=== PATIENT | male | born 1990 | race Caucasian/White ===

== ENCOUNTER 2019-05-28 17:59 | Inpatient (IN) | payer MEDICAID, OTHER ==
[~2019-05-28] VITALS: Ht 185.4 cm; Wt 94.4 kg
[2019-05-28] MEDS ORDERED: HYD25 PO (19:34)
[2019-05-28] MEDS ORDERED: ESCI20TA PO (19:34)
[2019-05-28] MEDS ORDERED: TRAZ-257 PO (19:34)
[2019-05-28 20:01] LABS: BASOPHILS % (AUTO) 0.4 % (0.0-2.0); EOSINOPHILS % (AUTO) 0 % (1.0-6.0); HEMATOCRIT 52.4 % (41-53); HEMOGLOBIN 17.6 g/dL (13.5-17.5); LYMPHOCYTES # (AUTO) 2.1 K/uL (1.0-4.8); LYMPHOCYTES % (AUTO) 14.6 % (22.0-44.0); MEAN CORPUSCULAR HEMOGLOBIN 31.2 pg (26.0-34.0); MEAN CORPUSCULAR HGB CONC 33.5 G/dL (31.0-37.0); MEAN CORPUSCULAR VOLUME 93 fL (80-100); MONOCYTES # (AUTO) 0.5 K/uL (0.1-1.0); MONOCYTES % (AUTO) 3.3 % (2.0-9.0); NEUTROPHILS # (AUTO) 11.9 K/uL (1.8-7.7); NEUTROPHILS % (AUTO) 81.7 % (40.0-70.0); PLATELET COUNT (AUTO) 293 K/uL (150-450); RED BLOOD CELL COUNT(AUTO) 5.63 MIL/uL (4.50-5.90); RED CELL DISTRIBUTION WIDTH 14.2 % (11.5-14.5)
[2019-05-28 20:18] LABS: ANION GAP 27 mmol/L (8-16); CALCIUM, TOTAL 9.2 mg/dL (8.8-10.5); CARBON DIOXIDE 16 mmol/L (22-29); CHLORIDE 102 mmol/L (98-107); CREATININE 1.26 mg/dL (0.60-1.30); GLOMERULAR FILTR. RATE CALC > 60 mL/min (>60); GLUCOSE,RANDOM 98 mg/dL (70-110); POTASSIUM 4.1 mmol/L (3.5-5.1); SODIUM SERUM 145 mmol/L (136-145); UREA NITROGEN, BLOOD 19 mg/dL (7-18)
[2019-05-28 20:24] LABS: ALANINE AMINOTRANSFERASE 34 U/L (12-78); ALBUMIN 4.6 g/dL (3.4-5.0); ALKALINE PHOSPHATASE 98 U/L (46-116); ASPARTATE AMINOTRANSFERASE 31 U/L (15-37); BILIRUBIN,TOTAL 0.4 mg/dL (0.1-1.0); TOTAL PROTEIN, SERUM 7.8 g/dL (6.4-8.2)
[2019-05-28] MEDS ORDERED: ChlordiazePOXIDE HCL 25 MG CAPSULE PO ONE (20:30)
[2019-05-28] MEDS ORDERED: ChlordiazePOXIDE HCL 25 MG CAPSULE PO PRN (20:45)
[2019-05-28] MEDS ORDERED: HALOPERIDOL 5 MG TABLET PO PRN (20:45)
[2019-05-28 22:16] VITALS: BP 121/89
[2019-05-28] MEDS: TraZODone HCL 50 MG TABLET PO SCH (22:29)
[2019-05-28] MEDS ORDERED: INFLUENZA VIRUS VACCINE QVS 2019-20 (3YR+)/PF 60 MCG/0.5 ML SYRINGE IM ONE (23:00)
[2019-05-28 23:16] VITALS: BP 125/75
[2019-05-29] VITALS (10 sets, daily range): BP systolic 124–159; BP diastolic 68–98
[2019-05-29 00:19] LABS: APPEARANCE,URINE CLEAR (CLEAR); BILIRUBIN,URINE NEGATIVE (NEGATIVE); GLUCOSE, URINE (UA) NEGATIVE (NEGATIVE); KETONES,URINE 15 mg/dL (NEGATIVE); LEUKOCYTE ESTERASE ,URINE NEGATIVE (NEGATIVE); NITRATE,URINE NEGATIVE (NEGATIVE); OCCULT BLOOD,URINE NEGATIVE (NEGATIVE); PROTEIN,URINE POS 1+ (NEGATIVE); UROBILINOGEN,URINE 0.2 mg/dL (<=1.0)
[2019-05-29 00:20] LABS: AMPHET/METH SCREEN,URINE NEGATIVE (NEGATIVE); BARBITURATE SCREEN, URINE NEGATIVE (NEGATIVE); BENZODIAZEPINES SCREEN,URINE NEGATIVE (NEGATIVE); CANNABINOID SCREEN,URINE POSITIVE (NEGATIVE); COCAINE SCREEN,URINE NEGATIVE (NEGATIVE); METHADONE SCREEN, URINE NEGATIVE (NEGATIVE); OPIATE SCREEN,URINE NEGATIVE (NEGATIVE)
[2019-05-29 00:22] LABS: PHENCYCLIDINE SCREEN,URINE NEGATIVE (NEGATIVE)
[2019-05-29] MEDS ORDERED: ChlordiazePOXIDE HCL 25 MG CAPSULE PO PRN (07:00)
[2019-05-29 07:21] LABS: CHOL/HDL RATIO 2.6 (4.2-7.3)
[2019-05-29] MEDS: ChlordiazePOXIDE HCL 25 MG CAPSULE PO SCH ×4 (08:46→20:31)
[2019-05-29] MEDS ORDERED: MAG HYDROX/AL HYDROX/SIMETH ES 30 ML SUSPENSION UDCUP PO PRN (09:30)
[2019-05-29] MEDS ORDERED: NICOTINE 14 MG/24 HOUR PATCH TD PRN (09:30)
[2019-05-29] MEDS ORDERED: ALBUTEROL SULFATE HFA 90 MCG/PUFF 8 GM INHALER IH PRN (09:30)
[2019-05-29] MEDS ORDERED: CloNIDine HCL 0.1 MG TABLET PO PRN (09:30)
[2019-05-29] MEDS ORDERED: ONDANSETRON HCL 4 MG TABLET PO PRN (09:30)
[2019-05-29] MEDS ORDERED: ACETAMINOPHEN 325 MG TABLET PO PRN (09:30)
[2019-05-29] MEDS ORDERED: MAGNESIUM HYDROXIDE SUSPENSION 30 ML UDCUP PO PRN (09:30)
[2019-05-29] MEDS ORDERED: GuaiFENesin/D-METHORPHAN [SUGAR-FREE] 200-20MG/10 ML SYRUP UDCUP PO PRN (09:30)
[2019-05-29] MEDS ORDERED: IBUPROFEN 400 MG TABLET PO PRN (09:30)
[2019-05-29] MEDS ORDERED: LOPERAMIDE HCL 2 MG CAPSULE PO PRN (09:30)
[2019-05-29] MEDS ORDERED: PETROLATUM,WHITE 28 GM JELLY TP PRN (09:30)
[2019-05-29] MEDS ORDERED: DOCUSATE SODIUM 100 MG CAPSULE PO PRN (09:30)
[2019-05-29] MEDS ORDERED: CYANOCOBALAMIN 1,000 MCG/ML VIAL IM ONE (12:30)
[2019-05-29] MEDS: MULTIVITAMINS WITH MINERALS, THERAPEUTIC TABLET PO SCH (12:49)
[2019-05-29] MEDS: FOLIC ACID 1 MG TABLET PO SCH (12:49)
[2019-05-29] MEDS: ESCITALOPRAM OXALATE 20 MG TABLET PO SCH (12:49)
[2019-05-29] MEDS: HydrOXYzine HCL 25 MG TABLET PO SCH ×2 (13:17→16:33)
[2019-05-29] MEDS: THIAMINE HCL 100 MG TABLET PO SCH (16:33)
[2019-05-29] MEDS: TraZODone HCL 50 MG TABLET PO SCH (20:33)
[2019-05-29] MEDS: TraZODone HCL 100 MG TABLET PO SCH (21:00)
[2019-05-30 07:13] VITALS: BP 132/95
[2019-05-30] MEDS: ESCITALOPRAM OXALATE 20 MG TABLET PO SCH (09:12)
[2019-05-30] MEDS: FOLIC ACID 1 MG TABLET PO SCH (09:12)
[2019-05-30] MEDS: THIAMINE HCL 100 MG TABLET PO SCH ×2 (09:12→16:48)
[2019-05-30] MEDS: ChlordiazePOXIDE HCL 25 MG CAPSULE PO SCH ×4 (09:12→20:22)
[2019-05-30] MEDS: MULTIVITAMINS WITH MINERALS, THERAPEUTIC TABLET PO SCH (09:12)
[2019-05-30] MEDS: HydrOXYzine HCL 25 MG TABLET PO SCH ×3 (09:13→16:48)
[2019-05-30 09:47] VITALS: BP 147/87
[2019-05-30 09:52] VITALS: BP 147/87
[2019-05-30 19:39] VITALS: BP 145/102
[2019-05-30 20:05] VITALS: BP 145/98
[2019-05-30] MEDS: TraZODone HCL 100 MG TABLET PO SCH (20:23)
[2019-05-31 06:31] VITALS: BP 144/103
[2019-05-31] MEDS ORDERED: ChlordiazePOXIDE HCL 10 MG CAPSULE PO PRN (07:00)
[2019-05-31 09:00] VITALS: BP 150/105
[2019-05-31] MEDS: THIAMINE HCL 100 MG TABLET PO SCH ×2 (09:33→16:06)
[2019-05-31] MEDS: ChlordiazePOXIDE HCL 10 MG CAPSULE PO SCH ×4 (09:33→20:12)
[2019-05-31] MEDS: ESCITALOPRAM OXALATE 20 MG TABLET PO SCH (09:34)
[2019-05-31] MEDS: MULTIVITAMINS WITH MINERALS, THERAPEUTIC TABLET PO SCH (09:34)
[2019-05-31] MEDS: FOLIC ACID 1 MG TABLET PO SCH (09:34)
[2019-05-31] MEDS: HydrOXYzine HCL 25 MG TABLET PO SCH ×3 (09:35→16:06)
[2019-05-31 10:08] VITALS: BP 150/105
[2019-05-31 18:08] VITALS: BP 149/104
[2019-05-31 18:09] VITALS: BP 142/99
[2019-05-31] MEDS: TraZODone HCL 100 MG TABLET PO SCH (20:12)
[2019-06-01 05:10] VITALS: BP 147/103
[2019-06-01 05:15] VITALS: BP 147/103
[2019-06-01] MEDS ORDERED: ChlordiazePOXIDE HCL 10 MG CAPSULE PO PRN (07:00)
[2019-06-01 07:52] LABS: BASOPHILS % (AUTO) 0.4 % (0.0-2.0); EOSINOPHILS % (AUTO) 2.1 % (1.0-6.0); HEMATOCRIT 44.8 % (41-53); HEMOGLOBIN 15.5 g/dL (13.5-17.5); LYMPHOCYTES # (AUTO) 1.2 K/uL (1.0-4.8); LYMPHOCYTES % (AUTO) 21.2 % (22.0-44.0); MEAN CORPUSCULAR HEMOGLOBIN 31.3 pg (26.0-34.0); MEAN CORPUSCULAR HGB CONC 34.5 G/dL (31.0-37.0); MEAN CORPUSCULAR VOLUME 91 fL (80-100); MONOCYTES # (AUTO) 0.5 K/uL (0.1-1.0); NEUTROPHILS # (AUTO) 3.9 K/uL (1.8-7.7); NEUTROPHILS % (AUTO) 68.3 % (40.0-70.0); PLATELET COUNT (AUTO) 114 K/uL (150-450); RED BLOOD CELL COUNT(AUTO) 4.94 MIL/uL (4.50-5.90); RED CELL DISTRIBUTION WIDTH 13.4 % (11.5-14.5)
[2019-06-01] MEDS: FOLIC ACID 1 MG TABLET PO SCH (08:58)
[2019-06-01] MEDS: MULTIVITAMINS WITH MINERALS, THERAPEUTIC TABLET PO SCH (08:58)
[2019-06-01] MEDS: ESCITALOPRAM OXALATE 20 MG TABLET PO SCH (08:58)
[2019-06-01] MEDS: HydrOXYzine HCL 25 MG TABLET PO SCH ×2 (08:58→12:24)
[2019-06-01] MEDS: THIAMINE HCL 100 MG TABLET PO SCH (08:58)
[2019-06-01 10:22] VITALS: BP 150/93
[2019-06-01 10:27] VITALS: BP 150/93
== END 2019-06-01 14:45 | disposition home or self-care (01) | DRG 885 ==
LOC: EMS 18:02 → 3EI 21:00
PROVIDERS: ADMIT Psychiatry & Neurology Child & Adolescent Psychiatry; ATTEND Psychiatry & Neurology Child & Adolescent Psychiatry
DX: F33.3 Major depressive disorder, recurrent, severe with psychotic symptoms (principal); E87.2 Acidosis; R45.851 Suicidal ideations; D72.829 Elevated white blood cell count, unspecified; E78.5 Hyperlipidemia, unspecified; F12.10 Cannabis abuse, uncomplicated; F10.20 Alcohol dependence, uncomplicated; J45.909 Unspecified asthma, uncomplicated; F41.9 Anxiety disorder, unspecified; Z79.899 Other long term (current) drug therapy
CPT/HCPCS: G0480; J3420

== ENCOUNTER 2021-08-26 18:33 | Emergency (ER) | payer MEDICAID ==
[~2021-08-26] VITALS: Ht 185.4 cm; Wt 95.5 kg
[~2021-08-26 18:33] MED LIST: ESCI20TA87 PO; HYDR-4527 PO
[2021-08-26 20:55] LABS: BASOPHILS % (AUTO) 0.4 % (0.0-2.0); EOSINOPHILS % (AUTO) 0.3 % (1.0-6.0); HEMATOCRIT 45.6 % (41-53); HEMOGLOBIN 15.7 g/dL (13.5-17.5); LYMPHOCYTES # (AUTO) 1.5 K/uL (1.0-4.8); LYMPHOCYTES % (AUTO) 24.1 % (22.0-44.0); MEAN CORPUSCULAR HEMOGLOBIN 31.4 pg (26.0-34.0); MEAN CORPUSCULAR HGB CONC 34.5 G/dL (31.0-37.0); MEAN CORPUSCULAR VOLUME 91 fL (80-100); MONOCYTES # (AUTO) 0.7 K/uL (0.1-1.0); MONOCYTES % (AUTO) 10.6 % (2.0-9.0); NEUTROPHILS # (AUTO) 4.1 K/uL (1.8-7.7); NEUTROPHILS % (AUTO) 64.6 % (40.0-70.0); PLATELET COUNT (AUTO) 212 K/uL (150-450); RED BLOOD CELL COUNT(AUTO) 5.01 MIL/uL (4.50-5.90)
[2021-08-26 21:00] LABS: ANION GAP 14 mmol/L (8-16); CALCIUM, TOTAL 9.3 mg/dL (8.8-10.5); CARBON DIOXIDE 27 mmol/L (22-29); CHLORIDE 98 mmol/L (98-107); CREATININE 0.94 mg/dL (0.60-1.30); GLOMERULAR FILTR. RATE CALC > 60 mL/min (>60); GLUCOSE,RANDOM 90 mg/dL (70-110); POTASSIUM 3.6 mmol/L (3.5-5.1); SODIUM SERUM 139 mmol/L (136-145); UREA NITROGEN, BLOOD 9 mg/dL (7-18)
[2021-08-26 21:06] LABS: ALANINE AMINOTRANSFERASE 287 U/L (12-78); ALBUMIN 4.4 g/dL (3.4-5.0); ALKALINE PHOSPHATASE 81 U/L (46-116); ASPARTATE AMINOTRANSFERASE 94 U/L (15-37); BILIRUBIN,TOTAL 1.2 mg/dL (0.1-1.0); TOTAL PROTEIN, SERUM 7.4 g/dL (6.4-8.2)
[2021-08-26] MEDS ORDERED: ONDANSETRON HCL 4 MG TABLET PO ONE (21:15)
[2021-08-26] MEDS ORDERED: MAG HYDROX/AL HYDROX/SIMETH ES 30 ML SUSPENSION UDCUP PO ONE (21:15)
[2021-08-26] MEDS ORDERED: FAMOTIDINE 20 MG TABLET PO ONE (21:15)
[2021-08-26] MEDS ORDERED: LORazepam 2 MG TABLET PO ONE (21:45)
[2021-08-26] MEDS ORDERED: LIB25 PO (21:50)
[2021-08-26] MEDS ORDERED: FAMO20 PO (21:50)
[2021-08-26] MEDS ORDERED: MAG30ORA11 PO (21:50)
[2021-08-26] MEDS ORDERED: ONDA-104 PO (21:50)
[2021-08-26 22:05] VITALS: BP 126/78
== END 2021-08-26 22:05 | disposition home or self-care (01) ==
LOC: EMS 18:46
DX: K70.30 Alcoholic cirrhosis of liver without ascites (principal); F10.229 Alcohol dependence with intoxication, unspecified; J45.909 Unspecified asthma, uncomplicated; F32.A Depression, unspecified; F12.90 Cannabis use, unspecified, uncomplicated; Y90.3 Blood alcohol level of 60-79 mg/100 ml
CPT/HCPCS: 36415; 80053; 85025; 99284; G0480; Q0162